=== PATIENT | female | born 1950 | race Two or more races ===

== ENCOUNTER 2018-02-21 20:46 | Emergency (ER) | payer MEDICARE, OTHER ==
[~2018-02-21] VITALS: Ht 167.6 cm; Wt 61.7 kg
[2018-02-22 01:02] VITALS: BP 187/87
== END 2018-02-22 01:29 | disposition left against medical advice (07) ==
LOC: ER 20:46
DX: H57.13 Ocular pain, bilateral (principal); Z53.21 Procedure and treatment not carried out due to patient leaving prior to being seen by health care provider